=== PATIENT | male | born 1995 | race African-American/Black ===

== ENCOUNTER 2022-07-05 22:20 | Emergency (ER) | payer SELFPAY ==
[2022-07-05] MEDS ORDERED: MAGNES/ALUMIN/SIMET 30ML UCUP ONE (22:57)
[2022-07-05] MEDS ORDERED: LIDOCAINE VISCOUS 2% SOLN 15 ML UDC ONE (22:57)
--- NOTE | 2022-07-05 23:40 | ER ---
Nurse's Notes [facility] Name: Sen French Age: 27 yrs Sex: Male : 1995 Arrival Date: 07/05/2022 Time: 22:22 Bed 20 Private MD: Diagnosis: Acute tonsillitis, unspecified Presentation: 07/05 22:42 Chief complaint: Patient states: fever, headache, sore throat and sinus congestion lg3 starting yesterday. Coronavirus screen: Client denies travel out of the [place] in the last 14 days. Client presents with at least one sign or symptom that may indicate coronavirus-19. Standard/surgical mask placed on the client. Ebola Screen: No symptoms or risks identified at this time. Initial Sepsis Screen: Does the patient meet any 2 criteria? No. Patient's initial sepsis screen is negative. Does the patient have a suspected source of infection? No. Patient's initial sepsis screen is negative. Risk Assessment: Do you want to hurt yourself or someone else? Patient reports no desire to harm self or others. Onset of symptoms was July 04, 2022. 22:42 Method Of Arrival: Ambulatory lg3 22:42 Acuity: ALIYAH 4 lg3 Triage Assessment: 22:44 General: Appears in no apparent distress. comfortable, Behavior is calm, cooperative. lg3 Pain: Complains of pain in throat and head. EENT: No deficits noted. Neuro: No deficits noted. Level of Consciousness is awake, alert, obeys commands, Oriented to person, place, time, situation. Cardiovascular: No deficits noted. Denies chest pain, shortness of breath, Capillary refill < 3 seconds Clubbing of nail beds is absent JVD is absent Patient's skin is warm and dry. Respiratory: No deficits noted. Airway is patent Trachea midline Respiratory effort is even, unlabored, Respiratory pattern is regular, symmetrical, Breath sounds are clear bilaterally. GI: No deficits noted. No signs and/or symptoms were reported involving the gastrointestinal system. Abdomen is flat, non-distended. : No deficits noted. No signs and/or symptoms were reported regarding the genitourinary system. Derm: No deficits noted. No signs and/or symptoms reported regarding the dermatologic system. Skin is intact, is healthy with good turgor, Skin is dry, Skin temperature is warm. Musculoskeletal: No deficits noted. No signs and/or symptoms reported regarding the musculoskeletal system. Circulation, motion, and sensation intact. Range of motion: intact in all extremities. Historical: - Allergies: 22:44 Aleve; lg3 - Home Meds: 22:44 None [Active]; lg3 - PMHx: 22:44 None; lg3 - PSHx: 22:44 None; lg3 - Immunization history:: Adult Immunizations up to date, Client reports having NOT received the Covid vaccine. - Social history:: Smoking status: Patient denies any tobacco usage or history of. Patient uses alcohol, occasionally. Patient/guardian denies using street drugs. Screenin:46 Abuse screen: Denies threats or abuse. Denies injuries from another. Nutritional lg3 screening: No deficits noted. Tuberculosis screening: No symptoms or risk factors identified. Fall Risk None identified. Assessment: 22:46 General: see triage assessment . Respiratory: Airway is patent Trachea midline lg3 Respiratory effort is even, unlabored, Respiratory pattern is regular, symmetrical. 23:44 Reassessment: Patient appears in no apparent distress at this time. No changes from lg3 previously documented assessment. Patient and/or family updated on plan of care and expected duration. Pain level reassessed. Patient is alert, oriented x 3, equal unlabored respirations, skin warm/dry/pink. 23:45 EENT: Throat is pink is reddened has enlarged tonsils bilaterally with gag reflex lg3 present. Vital Signs: 22:42 BP 128 / 84; Pulse 83; Resp 17 S; Temp 98.9(O); Pulse Ox 97% on R/A; Weight 68.04 kg lg3 (R); Height 6 ft. 0 in. (182.88 cm) (R); 23:44 BP 128 / 81; Pulse 81; Resp 17 S; Pulse Ox 98% on R/A; lg3 22:42 Body Mass Index 20.34 (68.04 kg, 182.88 cm) lg3 ED Course: 22:22 Patient arrived in ED. bp1 22:26 Elin[facility]C [facility]. kb 22:26 Jacob Bliss MD is Attending Physician. kb 22:41 Norma Auguste RN is Primary Nurse. lg3 22:44 Triage completed. lg3 22:44 Arm band placed on left wrist. lg3 22:46 Patient has correct armband on for positive identification. Bed in low position. Call lg3 light in reach. Side rails up X 1. Client placed on continuous cardiac and pulse oximetry monitoring. NIBP monitoring applied. Door closed. Noise minimized. Family accompanied patient. 22:57 Strep Sent. lg3 23:44 No provider procedures requiring assistance completed. Patient did not have IV access lg3 during this emergency room visit. Administered Medications: 22:57 Drug: GI Cocktail without - (Maalox Suspension 30 ml, Lidocaine Liquid 2 % 15 lg3 ml) Route: PO; 22:57 Follow up: Response: No adverse reaction lg3 Medication: 23:45 VIS not applicable for this client. lg3 Outcome: 23:40 Discharge ordered by . nicko 23:44 Discharged to home ambulatory, with family. lg3 23:44 Condition: stable 23:44 Discharge instructions given to patient, Instructed on discharge instructions, follow up and referral plans. medication usage, Demonstrated understanding of instructions, follow-up care, medications, Prescriptions given X 1. 23:45 Patient left the ED. lg3 Signatures: Elinor Sosa, INSTRUMENT TECHNOLOGIST-C INSTRUMENT TECHNOLOGIST-CkNorma Resendiz, RN RN lg3 Elsy Khan
--- NOTE | 2022-07-05 23:41 | EDPHYS ---
Physician Documentation [facility] Name: Sen French Age: 27 yrs Sex: Male : 1995 Arrival Date: 07/05/2022 Time: 22:22 Bed 20 Private MD: HUMBERTO Physician Jacob Bliss HPI: 07/05 23:42 This 27 yrs old Black Male presents to ER via Ambulatory with complaints of Sore Throat.kb 23:42 The patient presents with sore throat. The patient describes throat pain as constant. kb Onset: The symptoms/episode began/occurred 2 day(s) ago. Severity of symptoms: At their worst the symptoms were moderate, in the emergency department the symptoms are unchanged. Modifying factors: The symptoms are alleviated by nothing, the symptoms are aggravated by nothing, Patient's oral intake status: limited fluid intake, limited food intake. Associated signs and symptoms: Pertinent positives: fever, headache, Sore throat. The patient has not experienced similar symptoms in the past. The patient has not recently seen a physician. Historical: - Allergies: 22:44 Aleve; lg3 - Home Meds: 22:44 None [Active]; lg3 - PMHx: 22:44 None; lg3 - PSHx: 22:44 None; lg3 - Immunization history:: Adult Immunizations up to date, Client reports having NOT received the Covid vaccine. - Social history:: Smoking status: Patient denies any tobacco usage or history of. Patient uses alcohol, occasionally. Patient/guardian denies using street drugs. ROS: 23:41 Respiratory: Negative for shortness of breath, cough, wheezing, and pleuritic chest kb pain. 23:41 Constitutional: Positive for fever. 23:41 ENT: Positive for sore throat. 23:41 Neuro: Positive for headache. 23:41 All other systems are negative. Exam: 23:41 Constitutional: This is a well developed, well nourished patient who is awake, alert, kb and in no acute distress. Head/Face: Normocephalic, atraumatic. Cardiovascular: Regular rate and rhythm with a normal S1 and S2. No gallops, murmurs, or rubs. No pulse deficits. Respiratory: Respirations even and unlabored. No increased work of breathing. Talking in full sentences Skin: Warm, dry with normal turgor. Normal color. MS/ Extremity: Pulses equal, no cyanosis. Neurovascular intact. Full, normal range of motion. Neuro: Awake and alert, GCS 15, oriented to person, place, time, and situation. Moves all extremities. Normal gait. Psych: Awake, alert, with orientation to person, place and time. Behavior, mood, and affect are within normal limits. 23:41 ENT: Posterior pharynx: Airway: normal, no evidence of obstruction, Tonsils: bilaterally enlarged, with erythema, Uvula: normal, midline, swelling, that is moderate, erythema, that is moderate. 23:41 Neck: Lymph nodes: lymphadenopathy is appreciated, anterior cervical nodes. Vital Signs: 22:42 BP 128 / 84; Pulse 83; Resp 17 S; Temp 98.9(O); Pulse Ox 97% on R/A; Weight 68.04 kg lg3 (R); Height 6 ft. 0 in. (182.88 cm) (R); 23:44 BP 128 / 81; Pulse 81; Resp 17 S; Pulse Ox 98% on R/A; lg3 22:42 Body Mass Index 20.34 (68.04 kg, 182.88 cm) lg3 MDM: 22:34 Patient medically screened. kb 23:42 Data reviewed: vital signs, nurses notes. Data interpreted: Pulse oximetry: on room air kb is 97 %. Interpretation: normal. Counseling: I had a detailed discussion with the patient and/or guardian regarding: the historical points, exam findings, and any diagnostic results supporting the discharge/admit diagnosis, lab results, the need for outpatient follow up, a family practitioner, to return to the emergency department if symptoms worsen or persist or if there are any questions or concerns that arise at home. 07/05 22:37 Order name: Strep; Complete Time: 23:28 kb 07/05 23:34 Order name: Throat Culture EDMS Administered Medications: 22:57 Drug: GI Cocktail without - (Maalox Suspension 30 ml, Lidocaine Liquid 2 % 15 lg3 ml) Route: PO; 22:57 Follow up: Response: No adverse reaction lg3 Disposition: 07/06 06:19 Co-signature as Attending Physician, Jacob Bliss MD. [email or web address] Disposition Summary: 07/05/22 23:40 Discharge Ordered Location: Home kb Condition: Stable kb Diagnosis - Acute tonsillitis, unspecified kb Followup: kb - With: Emergency Department - When: As needed - Reason: Worsening of condition Followup: kb - With: Private Physician - When: 2 - 3 days - Reason: Recheck today's complaints, Continuance of care, Re-evaluation by your physician Discharge Instructions: - Discharge Summary Sheet kb - Tonsillitis, [id number] kb Forms: - Medication Reconciliation Form kb - Thank You Letter kb - Antibiotic Education kb - Prescription Opioid Use kb Prescriptions: - Amoxicillin 875 mg Oral Tablet - take 1 tablet by ORAL route every 12 hours for 10 days; 20 tablet; Refills: 0, kb Product Selection Permitted Signatures: Dispatcher [employer] EDElinor Camilo FNP-C FNP-Norma Argueta RN RN lg3 Jacob Bliss MD MD [email or web address]
[2022-07-06 01:02] VITALS: TEMP 98.9
[2022-07-06 01:04] VITALS: BP 128/81; O2SAT 98
== END 2022-07-05 23:45 | disposition home or self-care (01) ==
LOC: ER 22:20
DX: J03.90 Acute tonsillitis, unspecified (principal); Z88.6 Allergy status to analgesic agent
CPT/HCPCS: 87070; 87081; 99283

== ENCOUNTER 2023-01-04 21:59 | Emergency (ER) | payer SELFPAY ==
[2023-01-04] MEDS ORDERED: MORPHINE 4 MG/ML SYR ONE (23:32)
[2023-01-04] MEDS ORDERED: CYCLOBENZAPRINE 10 MG TAB ONE (23:34)
--- NOTE | 2023-01-05 00:40 | ER ---
Nurse's Notes [facility] Name: Sen French Age: 27 yrs Sex: Male : 1995 Arrival Date: 01/04/2023 Time: 22:02 Bed 25 Private MD: Diagnosis: Strain of muscle, fascia and tendon at neck level, initial encounter;Cervicalgia Presentation: 01/04 22:20 Chief complaint: Patient states: he was at work standing on a pipe and he slipped he bb caught himself but thinks he turned his neck wrong and was unable to move for a few seconds this incident happened last night denies tingling in arms or fingers but has to support his head to get up and can't turn his neck. Care prior to arrival: None. Mechanism of Injury: Fall. Trauma event details: Injury occurred in the [facility], Injury occurred: work. 22:20 Acuity: ALIYAH 3 bb 22:20 Method Of Arrival: Ambulatory bb 22:27 Coronavirus screen: At this time, the client does not indicate any symptoms associated bb with coronavirus-19. Ebola Screen: No symptoms or risks identified at this time. Initial Sepsis Screen: Does the patient meet any 2 criteria? No. Patient's initial sepsis screen is negative. Does the patient have a suspected source of infection? No. Patient's initial sepsis screen is negative. Risk Assessment: Do you want to hurt yourself or someone else? Patient reports no desire to harm self or others. Onset of symptoms was January 03, 2023. Historical: - Allergies: 22:27 Aleve; bb - Immunization history: Last tetanus immunization: na. - Social history:: Smoking status: Reported history of juuling and/or vaping. Screenin:20 Abuse screen: Denies threats or abuse. Tuberculosis screening: No symptoms or risk bb factors identified. 23:22 [facility] ED Fall Risk Assessment (Adult) History of falling in the last 3 months, bb including since admission No falls in past 3 months (0 pts) Confusion or Disorientation No (0 pts) Intoxicated or Sedated No (0 pts) Impaired Gait Yes (1 pt) Mobility Assist Device Used No (0 pt) Score/Fall Risk Level 0 - 2 = Low Risk Oriented to surroundings, Maintained a safe environment. Nutritional screening: No deficits noted. Primary Survey: 22:20 NO uncontrolled hemorrhage observed. A: The client is awake and alert. The airway is bb patent. Breathing/Chest: Spontaneous respiratory effort, equal unlabored respirations, breath sounds clear bilaterally, regular pattern, symmetrical chest rise and fall. Circulation: No external hemorrhage present. Regular and strong central pulse, skin warm/dry/normal color. Disability Client is alert. Secondary Survey: 22:20 HEENT: No deficits noted. Gastrointestinal: No deficits noted. : No deficits noted. bb Musculoskeletal: Reports pain in neck. Assessment: 22:20 General: Appears uncomfortable, Behavior is calm, cooperative. Pain: Complains of pain bb in neck Pain currently is 10 out of 10 on a pain scale. Neuro: Level of Consciousness is awake, alert, obeys commands, Oriented to person, place, time, situation. Cardiovascular: Capillary refill < 3 seconds Patient's skin is warm and dry. Respiratory: Respiratory effort is even, unlabored, Respiratory pattern is regular. GI: No signs and/or symptoms were reported involving the gastrointestinal system. Derm: Skin is dry, Skin is normal, Skin temperature is warm. Musculoskeletal: Circulation, motion, and sensation intact. Reports pain in neck. 01/05 00:47 Reassessment: Patient appears in no apparent distress at this time. No changes from lg3 previously documented assessment. Patient and/or family updated on plan of care and expected duration. Pain level reassessed. Patient is alert, oriented x 3, equal unlabored respirations, skin warm/dry/pink. Vital Signs: 01/04 22:20 BP 152 / 100; Pulse 80; Resp 18 S; Temp 98.3(O); Pulse Ox 100% on R/A; Weight 68.04 kg bb (R); Height 6 ft. 0 in. (182.88 cm) (R); Pain 10/10; 23:31 BP 141 / 100; Pulse 74; Resp 15; Temp 98.0; Pulse Ox 97% on R/A; Weight 68.04 kg; rv1 Height 6 ft. 0 in. (182.88 cm); Pain 10/; 01/05 00:47 BP 132 / 90; Pulse 77; Resp 17 S; Pulse Ox 99% on R/A; lg3 01/04 23:31 Body Mass Index 20.34 (68.04 kg, 182.88 cm) rv1 Mastic Coma Score: 02 22:20 Eye Response: spontaneous(4). Verbal Response: oriented(5). Motor Response: obeys bb commands(6). Total: 15. Trauma Score (Adult): 22:20 Eye Response: spontaneous(1); Verbal Response: oriented(1); Motor Response: obeys bb commands(2); Systolic BP: > 89 mm Hg(4); Respiratory Rate: 10 to 29 per min(4); Mastic Score: 15; Trauma Score: 12 ED Course: 22:02 Patient arrived in ED. [id number] 22:20 Patient has correct armband on for positive identification. C-collar applied. bb 22:20 Rigid cervical collar applied. Patient maintains SpO2 saturation greater than 95% on bb room air. 22:23 Triage completed. bb 22:27 Arm band placed on Patient placed in waiting room, Patient notified of wait time. bb Family accompanied patient. 22:33 Hebert Magaña PA is PHCP. cp 22:33 Hebert Godoy MD is Attending Physician. cp 23:44 CT C Spine In Process Unspecified. EDMS 02/ 00:46 No provider procedures requiring assistance completed. Patient did not have IV access lg3 during this emergency room visit. Administered Medications: 01/04 23:36 Not Given (unavaliablee): Baclofen 10 mg PO once lg3 23:43 Drug: morphine 4 mg Route: IM; Site: left deltoid; lg3 02 00:37 Follow up: Response: No adverse reaction; Pain is decreased lg3 02 23:43 Drug: Flexeril (cyclobenzaprine) 10 mg Route: PO; lg3 02 00:38 Follow up: Response: No adverse reaction; Marked relief of symptoms lg3 00:42 Drug: Lidoderm Patch 5 % (700 mg/patch) 1 patches Route: Topical; Site: affected area; lg3 00:42 Drug: predniSONE 60 mg Route: PO; lg3 00:42 Follow up: Response: No adverse reaction lg3 Medication: 02 23:22 VIS not applicable for this client. bb Intake: 22:20 PO: 0ml; Total: 0ml. bb Outcome: 01/05 00:39 Discharge ordered by . cp 00:46 Discharged to home ambulatory, with significant other. lg3 00:46 Condition: stable 00:46 Discharge instructions given to patient, Instructed on discharge instructions, follow up and referral plans. medication usage, Demonstrated understanding of instructions, follow-up care, medications, Prescriptions given X 3. 00:47 Patient left the ED. lg3 Signatures: Dispatcher [employer] EDSaba Truong, RN RN bb Hebert Magaña PA PA cp Gibson, Lacie, RN RN lg3 Destiny Tang Chitra Turcios [facility]
--- NOTE | 2023-01-05 00:40 | EDPHYS ---
Physician Documentation [facility] Name: Sen French Age: 27 yrs Sex: Male : 1995 Arrival Date: 01/04/2023 Time: 22:02 Bed 25 Private MD: ED Physician Hebert Godoy HPI: 01/04 23:15 This 27 yrs old Black Male presents to ER via Ambulatory with complaints of Fall cp Injury, Neck Injury. 23:15 The patient or guardian complains of pain, that is acute, tenderness, stiffness. cp 23:15 The symptoms are located on the posterior neck. Onset: The symptoms/episode cp began/occurred today. Context: Patient reports while at work today and standing on a pipe, he lost his balance causing him to injure neck. Patient denies falling to ground and reports the slipping while balancing on pipe injured his neck. Reports inability to turn head without significant pain. Historical: - Allergies: 22:27 Aleve; bb - Immunization history: Last tetanus immunization: na. - Social history:: Smoking status: Reported history of juuling and/or vaping. ROS: 23:20 Constitutional: Negative for body aches, chills, fever, poor PO intake. cp 23:20 Eyes: Negative for injury, pain, redness, and discharge. cp 23:20 ENT: Negative for drainage from ear(s), ear pain, sore throat, difficulty swallowing, difficulty handling secretions. 23:20 Neck: Positive for pain with movement, pain at rest, stiffness, tenderness. 23:20 Cardiovascular: Negative for chest pain, edema, palpitations. 23:20 Respiratory: Negative for cough, shortness of breath, wheezing. 23:20 Abdomen/GI: Negative for abdominal pain, nausea, vomiting, and diarrhea. 23:20 Back: Negative for pain at rest, pain with movement. 23:20 Neuro: Negative for altered mental status, dizziness, headache, numbness, tingling, weakness. 23:20 All other systems are negative. Exam: 23:25 Constitutional: The patient appears in no acute distress, alert, awake, cp non-diaphoretic, non-toxic, well developed, well nourished, in obvious pain, uncomfortable. 23:25 Head/Face: Normocephalic, atraumatic. cp 23:25 Eyes: Periorbital structures: appear normal, Pupils: equal, round, and reactive to light and accomodation, Extraocular movements: intact throughout, Conjunctiva: normal, no exudate, no injection, Sclera: no appreciated abnormality, Lids and lashes: appear normal, bilaterally. 23:25 ENT: External ear(s): are unremarkable, Nose: is normal, Mouth: Lips: moist, Oral mucosa: pink and intact, moist, Posterior pharynx: is normal, airway is patent, no erythema, no exudate. 23:25 Neck: External neck: tenderness, that is severe, of the occiput, left mid cervical area, right mid cervical area, left trapezius, lower cervical area, right trapezius and left side of neck, C-spine: vertebral tenderness, that is mild, appreciated at C4, C5 and C6, crepitus, is not appreciated, ROM/movement: pain, that is severe, with any movement, limited range of motion, that is severe, in any direction. 23:25 Chest/axilla: Inspection: normal, Palpation: is normal, no crepitus, no tenderness. 23:25 Cardiovascular: Rate: normal, Rhythm: regular. 23:25 Respiratory: the patient does not display signs of respiratory distress, Respirations: normal, no use of accessory muscles, no retractions, labored breathing, is not present, Breath sounds: are clear throughout, no decreased breath sounds, no stridor, no wheezing. 23:25 Abdomen/GI: Exam negative for discomfort, distension, guarding, Inspection: abdomen appears normal. 23:25 Back: pain, that is moderate, of the left trapezius. 23:25 Skin: cellulitis, is not appreciated, no rash present. 23:25 Neuro: Orientation: to person, place \T\ time. Mentation: is normal, Motor: moves all fours, strength is normal, Sensation: is normal. Vital Signs: 22:20 BP 152 / 100; Pulse 80; Resp 18 S; Temp 98.3(O); Pulse Ox 100% on R/A; Weight 68.04 kg bb (R); Height 6 ft. 0 in. (182.88 cm) (R); Pain 10/10; 23:31 BP 141 / 100; Pulse 74; Resp 15; Temp 98.0; Pulse Ox 97% on R/A; Weight 68.04 kg; rv1 Height 6 ft. 0 in. (182.88 cm); Pain 10/10; 01/05 00:47 BP 132 / 90; Pulse 77; Resp 17 S; Pulse Ox 99% on R/A; lg3 01/04 23:31 Body Mass Index 20.34 (68.04 kg, 182.88 cm) rv1 Flaca Coma Score: 01/04 22:20 Eye Response: spontaneous(4). Verbal Response: oriented(5). Motor Response: obeys bb commands(6). Total: 15. Trauma Score (Adult): 22:20 Eye Response: spontaneous(1); Verbal Response: oriented(1); Motor Response: obeys bb commands(2); Systolic BP: > 89 mm Hg(4); Respiratory Rate: 10 to 29 per min(4); Wayne Score: 15; Trauma Score: 12 MDM: 22:35 Patient medically screened. [facility] 01/05 00:38 Data reviewed: vital signs, nurses notes, radiologic studies, CT scan. 00:38 Differential diagnosis: Cervical Disc Herniation cervical strain, Spondylolisthesis cp Spondylosis torticollis, Whiplash Injury. Consideration of Admission/Observation Escalation of care including admission/observation considered. I considered the following discharge prescriptions or medication management in the emergency department Medications were administered in the Emergency Department. See MAR. Test considered but Not performed: MRI: c-spine. Counseling: I had a detailed discussion with the patient and/or guardian regarding: the historical points, exam findings, and any diagnostic results supporting the discharge/admit diagnosis, radiology results, the need for outpatient follow up, a family practitioner, to return to the emergency department if symptoms worsen or persist or if there are any questions or concerns that arise at home. Response to treatment: pain improved, and as a result, I will discharge patient. 01/04 23:10 Order name: CT C Spine cp Administered Medications: 01/04 23:36 Not Given (unavaliablee): Baclofen 10 mg PO once lg3 23:43 Drug: morphine 4 mg Route: IM; Site: left deltoid; 3 01/05 00:37 Follow up: Response: No adverse reaction; Pain is decreased 3 01/04 23:43 Drug: Flexeril (cyclobenzaprine) 10 mg Route: PO; lg3 01/05 00:38 Follow up: Response: No adverse reaction; Marked relief of symptoms lg3 00:42 Drug: Lidoderm Patch 5 % (700 mg/patch) 1 patches Route: Topical; Site: affected area; lg3 00:42 Drug: predniSONE 60 mg Route: PO; lg3 00:42 Follow up: Response: No adverse reaction lg3 Disposition Summary: 01/05/23 00:39 Discharge Ordered Location: Home cp Problem: new cp Symptoms: have improved cp Condition: Stable cp Diagnosis - Strain of muscle, fascia and tendon at neck level, initial encounter cp - Cervicalgia cp Followup: cp - With: Private Physician - When: 2 - 3 days - Reason: Recheck today's complaints Discharge Instructions: - Discharge Summary Sheet cp - Muscle Strain cp - Heat Therapy cp - Neck Exercises cp Forms: - Medication Reconciliation Form cp - Thank You Letter cp - Antibiotic Education cp - Prescription Opioid Use cp - Work release form lg3 Prescriptions: - Cyclobenzaprine 10 mg Oral Tablet - take 1 tablet by ORAL route every 8 hours As needed; 20 tablet; Refills: 0, cp Product Selection Permitted - Tramadol 50 mg Oral Tablet - take 1 tablet by ORAL route every 8 hours as needed; 12 tablet; Refills: 0, cp Product Selection Permitted - Medrol (Shane) 4 mg Oral Tablets, Dose Pack - take 1 tablet by ORAL route as directed - follow package instructions; 1 cp packet; Refills: 0, Product Selection Permitted Signatures: Dispatcher [employer] EDHebert Duarte MD MD cha Ballard, Brenda, RN RN Hebert Marquez PA PA Norma Vera, RN RN lg3 Corrections: (The following items were deleted from the chart) 14:46 01/04 23:25 This 27 yrs old Black Male presents to ER via Ambulatory with complaints of cp Fall Injury, Neck Injury. cp
[2023-01-05] MEDS ORDERED: LIDOCAINE 4% PATCH ONE (00:41)
[2023-01-05] MEDS ORDERED: predniSONE 20 MG TAB ONE (00:41)
[2023-01-05 00:53] VITALS: TEMP 98
[2023-01-05 00:55] VITALS: BP 132/90; O2SAT 99
--- NOTE | 2023-01-05 14:48 | RAD REPORT ---
EXAM DESCRIPTION: C Spine Wo Con 01/05/2023 12:14 AM [employer] SPECIALIST CLINICAL HISTORY: 27 years, Male, pain COMPARISON: None TECHNIQUE: Multiple axial CT images through the cervical spine were obtained at 2 mm slice thickness at 2 mm interval reconstruction. In addition 2-D multiplanar reformats and the sagittal coronal plan e were performed and reviewed. This exam was performed according to our departmental dose-optimization protocol, which includes auto mated exposure control, adjustment of the mA and/or kV according to patient size and/or use of iterat faina reconstruction technique. FINDINGS: The alignment, vertebral body heights, and disc spaces are normal. There is minimal straig htening of the cervical spine most likely related to cervical collar. There is no evidence of fractur e or subluxation. There are no symptom degenerative changes. The spinal canal demonstrate no evidence for significant stenosis. Neural foramina demonstrate to be unremarkable. The uncovertebral joints d emonstrate to be normal. There is no prevertebral soft tissue swelling. The lung apices demonstrate t o be unremarkable. Sagittal coronal reformatted images demonstrate no subluxation or bony abnormaliti es. IMPRESSION: Unremarkable CT scan of the cervical spine. Minimal straightening of the cervical spine most likely related to cervical collar. Electronically signed by: Sridhar Blood MD 01/05/2023 12:14 AM [employer] SPECIALIST Due to temporary technical issues with the PACS/Fluency reporting system, reports are being signed by the in house radiologists without review as a courtesy to insure prompt reporting. The interpreting radiologist is fully responsible for the content of the report.
== END 2023-01-05 00:47 | disposition home or self-care (01) ==
LOC: ER 21:59
DX: S16.1XXA Strain of muscle, fascia and tendon at neck level, initial encounter (principal)
CPT/HCPCS: 72125; 96372; 99284; J2001; J7512